=== PATIENT | male | born 1980 | race Caucasian/White ===

== ENCOUNTER 2021-04-24 09:52 | Emergency (ER) | payer MEDICARE ==
[~2021-04-24] VITALS: Ht 175.3 cm; Wt 77.0 kg
[~2021-04-24 09:52] MED LIST: HALO5TAB2 PO; RISP1TAB48 PO
[2021-04-24] MEDS ORDERED: LORazepam 2 MG/ML VIAL IM ONE (10:15)
[2021-04-24] MEDS ORDERED: HALOPERIDOL LACTATE 5 MG/ML VIAL IM ONE (10:15)
[2021-04-24 13:01] LABS: COVID AG,FIA SOURCE NASOPHARYNGEAL
[2021-04-24 17:36] VITALS: BP 139/82
== END 2021-04-24 18:01 | disposition home or self-care (01) ==
LOC: EMS 09:59 → MERGE 09:59 → EDBD 09:59 → EMS 18:01
DX: F29 Unspecified psychosis not due to a substance or known physiological condition (principal); R45.851 Suicidal ideations; F15.10 Other stimulant abuse, uncomplicated; F17.200 Nicotine dependence, unspecified, uncomplicated; Z20.822 Contact with and (suspected) exposure to COVID-19
CPT/HCPCS: 36415; 87426; 96372; 99285; J1630; J2060